=== PATIENT | male | born 1985 | race Caucasian/White ===

== ENCOUNTER 2017-02-08 19:53 | Emergency (ER) | payer OTHER ==
[~2017-02-08] VITALS: Ht 175.3 cm; Wt 99.8 kg
[~2017-02-08 19:53] MED LIST: CARI350T PO; OXYC30TA PO
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
[2017-02-08] MEDS ORDERED: NEOMY/BACITR/POLYMYXIN OINT PACKET. TP ONE ×2 (20:33→20:45)
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
[2017-02-08] MEDS ORDERED: fentaNYL PF VIAL 100 MCG/2 ML VIAL ONE (22:57)
[2017-02-08] MEDS ORDERED: HYDROmorphone 2 MG/ML VIAL IV ONE (23:30)
[2017-02-08] MEDS ORDERED: LIDOCAINE 1%/EPI 1:100,000 20 ML VIAL. INJ ONE (23:30)
[2017-02-08] MEDS ORDERED: fentaNYL PF VIAL 100 MCG/2 ML VIAL IV ONE (23:30)
[2017-02-09 00:10] VITALS: BP 114/64
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
== END 2017-02-09 00:45 | disposition home or self-care (01) ==
LOC: ER 19:53 → EEVIPCON 19:53 → ER 02-09 00:45
DX: S01.01XA Laceration without foreign body of scalp, initial encounter (principal); M54.2 Cervicalgia; R51 Headache; M54.6 Pain in thoracic spine; G89.29 Other chronic pain; Z88.4 Allergy status to anesthetic agent; Z88.6 Allergy status to analgesic agent; Z88.8 Allergy status to other drugs, medicaments and biological substances; Y04.2XXA Assault by strike against or bumped into by another person, initial encounter; Y93.89 Activity, other specified; Y99.8 Other external cause status; Y92.89 Other specified places as the place of occurrence of the external cause
CPT/HCPCS: 12002; 70450; 70486; 71010; 72125; 72128; 96374; 99284; J1170; J3490